=== PATIENT | female | born 1935 | race African-American/Black ===

== ENCOUNTER 2018-04-02 16:50 | Emergency (ER) | payer OTHER ==
[~2018-04-02] VITALS: Ht 157.5 cm; Wt 63.5 kg
[2018-04-02] MEDS ORDERED: FLEET ENEMA(ADULT) 135 ML PR ONE (17:45)
[2018-04-02 18:17] VITALS: BP 112/61
== END 2018-04-02 18:52 | disposition home or self-care (01) ==
LOC: EDUNIT# 16:50 → EDBD 16:50 → ER 16:50
DX: K59.00 Constipation, unspecified (principal); I13.0 Hypertensive heart and chronic kidney disease with heart failure and stage 1 through stage 4 chronic kidney disease, or unspecified chronic kidney disease; N18.9 Chronic kidney disease, unspecified; I50.9 Heart failure, unspecified; E78.5 Hyperlipidemia, unspecified; Z98.51 Tubal ligation status
CPT/HCPCS: 93005